=== PATIENT | male | born 1950 | race African-American/Black ===

== ENCOUNTER → 2017-04-05 | Outpatient (CLI) | payer MEDICARE, MEDICAID ==
[2017-04-05 08:03] LABS: ASPARTATE AMINO TRANSFERASE 20 U/L (15-37); BLOOD UREA NITROGEN 39 mg/dL (7-18)
== END | disposition home or self-care (01) ==
LOC: LAB 07:34
PROVIDERS: ATTEND Family Medicine
DX: I12.9 Hypertensive chronic kidney disease with stage 1 through stage 4 chronic kidney disease, or unspecified chronic kidney disease (principal); E11.22 Type 2 diabetes mellitus with diabetic chronic kidney disease; E11.319 Type 2 diabetes mellitus with unspecified diabetic retinopathy without macular edema; N18.2 Chronic kidney disease, stage 2 (mild); E78.70 Disorder of bile acid and cholesterol metabolism, unspecified
CPT/HCPCS: 36415; 80053; 83036

== ENCOUNTER → 2017-07-31 | Outpatient (CLI) | payer MEDICARE, MEDICAID ==
[2017-07-31 07:38] LABS: BLOOD UREA NITROGEN 47 mg/dL (7-18)
== END | disposition home or self-care (01) ==
LOC: LAB 07:14
PROVIDERS: ATTEND Family Medicine
DX: E11.9 Type 2 diabetes mellitus without complications (principal)
CPT/HCPCS: 36415; 80048

== ENCOUNTER → 2018-08-16 | Outpatient (CLI) | payer MEDICAID, MEDICARE ==
[2018-08-16 08:29] LABS: ANION GAP 6 mmol/L (5-15); CALCIUM 8.7 mg/dL (8.5-10.1); CHLORIDE 108 mmol/L (98-107)
[2018-08-16 08:32] LABS: ALANINE AMINOTRANSFERASE 25 U/L (12-78); ALKALINE PHOSPHATASE 59 U/L (45-117); BILIRUBIN,TOTAL 0.2 mg/dL (0.2-1.0); CHOL/HDL RATIO 3.1; CHOLESTEROL, TOTAL 144 mg/dL (140-239); CREATININE 1.51 mg/dL (0.7-1.3); HDL CHOL % 33 % (26-37); HDL CHOLESTEROL (DIRECT) 47 mg/dL (40-60); LDL CHOLESTEROL,CALCULATED 79 mg/dL (54-169); LDL/HDL RATIO 1.7 (0.5-3.0); TOTAL PROTEIN 7.9 g/dL (6.4-8.2); TRIGLYCERIDES 89 mg/dL (50-200); VLDL CHOLESTEROL 18 mg/dL (0-25)
[2018-08-16 08:57] LABS: HEMOGLOBIN A1C 7.3 % (4.2-6.3)
[2018-08-16 09:06] LABS: MICROSCOPIC NOT IND
[2018-08-16 09:15] LABS: CULTURE INDICATED? NO
== END | disposition home or self-care (01) ==
LOC: LAB 07:59
PROVIDERS: ATTEND Family Medicine
DX: E11.9 Type 2 diabetes mellitus without complications (principal)
CPT/HCPCS: 36415; 80053; 80061; 81003; 82043; 83036

== ENCOUNTER → 2019-03-17 | Outpatient (CLI) | payer MEDICARE, MEDICAID ==
[2019-03-17 07:30] LABS: ALANINE AMINOTRANSFERASE 27 U/L (12-78); ALBUMIN 4.3 g/dL (3.4-5.0); ANION GAP 5 mmol/L (5-15); CALCIUM 9.5 mg/dL (8.5-10.1); CHLORIDE 106 mmol/L (98-107); CREATININE 1.78 mg/dL (0.7-1.3)
[2019-03-17 07:32] LABS: ALKALINE PHOSPHATASE 56 U/L (45-117); BILIRUBIN,TOTAL 0.2 mg/dL (0.2-1.0)
== END | disposition home or self-care (01) ==
LOC: LAB 07:03
PROVIDERS: ATTEND Family Medicine
DX: E11.21 Type 2 diabetes mellitus with diabetic nephropathy (principal)
CPT/HCPCS: 36415; 80053; 83036

== ENCOUNTER 2019-07-24 19:00 | Emergency (ER) | payer MEDICARE, MEDICAID ==
[~2019-07-24] VITALS: Ht 172.7 cm; Wt 69.2 kg
--- NOTE | 2019-07-24 20:47 | NUR ---
PT UPDATED ON POC. ATTEMPT TO COLLECT URINE, PT ATTEMPTS BUT UNABLE TO GO STATING HE HAS URINATED FOUR TIMES SINCE ARRIVAL TO ER. CALL LIGHT WITHIN REACH. AWAITING XR READ.
--- NOTE | 2019-07-24 20:53 | NUR ---
URINE COLLECTED/SENT TO LAB.
[2019-07-24 20:54] LABS: ALBUMIN 4.1 g/dL (3.4-5.0); ANION GAP 10 mmol/L (5-15); CALCIUM 9.3 mg/dL (8.5-10.1); CHLORIDE 106 mmol/L (98-107); CREATININE 1.43 mg/dL (0.7-1.3)
[2019-07-24 20:59] LABS: BASOPHILS # (AUTO) 0.03 x10^3/uL (0-0.1); BASOPHILS % (AUTO) 1 % (0-1); EOSINOPHILS # (AUTO) 0.02 x10^3/uL (0-0.4); EOSINOPHILS % (AUTO) 0 % (1-7); LYMPHOCYTES # (AUTO) 1.91 x10^3/uL (1-3.4); LYMPHOCYTES % (AUTO) 32 % (22-44); MD NO; MEAN CORPUSCULAR HEMOGLOBIN 28.3 pg (27.5-34.5); MEAN CORPUSCULAR HGB CONC 32.4 g/dL (33.2-36.2); MEAN CORPUSCULAR VOLUME 87.4 fL (81-97); MEAN PLATELET VOLUME 8.5 fL (7.4-10.4); MONOCYTES # (AUTO) 0.41 x10^3/uL (0.2-0.8); MONOCYTES % (AUTO) 7 % (2-9); NEUTROPHILS # (AUTO) 3.66 x10^3/uL (1.8-6.8); NEUTROPHILS % (AUTO) 61 % (42-75); PLATELET COUNT 206 x10^3/uL (130-400); RED BLOOD COUNT 5.11 x10^6/uL (4.38-5.82); RED CELL DISTRIBUTION WIDTH 15.2 % (9.4-14.8)
[2019-07-24 21:12] LABS: MICROSCOPIC AUTO
--- NOTE | 2019-07-24 21:22 | NUR ---
EMILIA ENEMA INSTRUCTIONS PROVIDED TO PT. RN ASSIST WITH PT TO SELF ADMINISTER ENEMA. ENEMA TOLERATED WELL, PT LYING ON LEFT SIDE, CALL LIGHT WITHIN REACH.
[2019-07-24 21:24] LABS: CULTURE INDICATED? NO
--- NOTE | 2019-07-24 21:49 | NUR ---
PT WITH SMALL AMOUNT OF STOOL IN TOILET. PT STATES HE CAN STILL FEEL A LOT OF PRESSURE IN RECTUM. 2ND FLEETS ATTEMPTED, PT INSTRUCTED TO HOLD IN FLUID LONG POSSIBLE. CALL LIGHT WITHIN REACH.
[2019-07-24 21:50] VITALS: BP 136/78
--- NOTE | 2019-07-24 22:07 | NUR ---
REPORT TO TONY PERALTA, TRANSFER OF CARE AT THIS TIME.
--- NOTE | 2019-07-24 22:24 | NUR ---
REPORT RECIEVED FROM KATHRYN MONET
== END 2019-07-24 23:00 | disposition home or self-care (01) ==
LOC: ED 22:49
DX: K59.00 Constipation, unspecified (principal); E11.22 Type 2 diabetes mellitus with diabetic chronic kidney disease; N18.9 Chronic kidney disease, unspecified
CPT/HCPCS: 36415; 74021; 80048; 81001; 82040; 85025; 99284

== ENCOUNTER 2020-06-30 08:25 | Emergency (ER) | payer MEDICARE, MEDICAID ==
[~2020-06-30] VITALS: Ht 172.7 cm; Wt 65.9 kg
[~2020-06-30 08:25] MED LIST: ASPI81TA45 PO; CLOP75TA PO; FURO-93 PO; INSU100I13 SQ; LISI5TAB7 PO; METF500T17 PO; METO25TA35 PO/NG; POTA10TA5 PO; SIMV40TA20 PO
[2020-06-30 08:27] VITALS: BP 159/87
--- NOTE | 2020-06-30 08:45 | NUR ---
MANAGER COSTING: PT TO ROOM FROM [facility]
--- NOTE | 2020-06-30 08:57 | NUR ---
PT WITH CABG 3 WKS AGO, HAS STAPLE FOR R HARVEST SITE LE. PT STATES HE HAS FOLLOWED UP WITH CARDIOLOGY BUT THEY DIDNT TELL HIM WHEN TO HAVE IDANIA REMOVED.
== END 2020-06-30 09:47 | disposition home or self-care (01) ==
LOC: ED 09:28
DX: S81.811D Laceration without foreign body, right lower leg, subsequent encounter (principal); X58.XXXD Exposure to other specified factors, subsequent encounter
CPT/HCPCS: 99281

== ENCOUNTER 2020-07-26 19:00 | Emergency (ER) | payer MEDICARE, MEDICAID ==
[~2020-07-26] VITALS: Ht 172.7 cm; Wt 68.3 kg
[2020-07-26 19:14] VITALS: BP 182/74
--- NOTE | 2020-07-26 19:43 | NUR ---
PT SITTING IN CHAIR, CONVERSING WITH THIS RN, NO SIGNS OF DISTRESS. 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
[2020-07-26 20:12] LABS: BASOPHILS # (AUTO) 0.06 x10^3/uL (0-0.1); BASOPHILS % (AUTO) 1 % (0-1); EOSINOPHILS % (AUTO) 2 % (1-7); LYMPHOCYTES % (AUTO) 32 % (22-44); MD NO; MEAN CORPUSCULAR HEMOGLOBIN 28.2 pg (27.5-34.5); MEAN CORPUSCULAR HGB CONC 32.2 g/dL (33.2-36.2); MEAN CORPUSCULAR VOLUME 87.6 fL (81-97); MEAN PLATELET VOLUME 8.8 fL (7.4-10.4); MONOCYTES # (AUTO) 0.43 x10^3/uL (0.2-0.8); MONOCYTES % (AUTO) 7 % (2-9); NEUTROPHILS # (AUTO) 3.69 x10^3/uL (1.8-6.8); NEUTROPHILS % (AUTO) 59 % (42-75); PLATELET COUNT 213 x10^3/uL (130-400); RED BLOOD COUNT 4.63 x10^6/uL (4.38-5.82); RED CELL DISTRIBUTION WIDTH 16.6 % (9.4-14.8)
[2020-07-26 20:23] LABS: ALANINE AMINOTRANSFERASE 20 U/L (12-78); ANION GAP 7 mmol/L (5-15); CALCIUM 9.4 mg/dL (8.5-10.1); CHLORIDE 109 mmol/L (98-107); CREATININE 1.64 mg/dL (0.7-1.3)
[2020-07-26 20:26] LABS: ALBUMIN 3.7 g/dL (3.4-5.0); ALKALINE PHOSPHATASE 78 U/L (45-117); BILIRUBIN,TOTAL 0.2 mg/dL (0.2-1.0); TOTAL PROTEIN 7.9 g/dL (6.4-8.2)
== END 2020-07-26 21:32 | disposition home or self-care (01) ==
LOC: ED 21:31
DX: L03.031 Cellulitis of right toe (principal); E11.9 Type 2 diabetes mellitus without complications; I10 Essential (primary) hypertension; Z95.1 Presence of aortocoronary bypass graft
CPT/HCPCS: 36415; 80053; 85025; 99284

== ENCOUNTER 2020-08-04 15:23 | Emergency (ER) | payer MEDICAID, MEDICARE ==
[~2020-08-04] VITALS: Ht 175.3 cm; Wt 67.1 kg
[2020-08-04 15:32] VITALS: BP 108/52
[2020-08-04] MEDS ORDERED: LIDOCAINE 1%, 10ML INFIL ONE (16:00)
[2020-08-04] MEDS ORDERED: LIDOCAINE-MPF 1%, 5ML ONE (16:05)
== END 2020-08-04 17:31 | disposition home or self-care (01) ==
LOC: ED 17:25
DX: L02.611 Cutaneous abscess of right foot (principal); E11.9 Type 2 diabetes mellitus without complications; Z87.891 Personal history of nicotine dependence
CPT/HCPCS: 10060; 99282

== ENCOUNTER 2020-08-10 12:21 | Emergency (ER) | payer MEDICARE ==
[~2020-08-10] VITALS: Ht 172.7 cm; Wt 67.2 kg
--- NOTE | 2020-08-10 13:05 | NUR ---
FIRST CONTACT WITH PT. PT STATED"ITCHING ALL OVER THE BODY AND I CAN'T SLEEP FOR A FEW DAYS' PT DENIES ANY RASH/REDNESS/SWELLING ON THE BODY. BP/SPO2 MONITORS IN PLACE. CALL LIGHT WITHIN REACH. PA AT BEDSIDE EVALUATING AT THIS TIME.
--- NOTE | 2020-08-10 13:16 | NUR ---
PT MEDICATED PER EMAR. PT TOLERATED WELL.
[2020-08-10 13:28] LABS: BASOPHILS # (AUTO) 0.05 x10^3/uL (0-0.1); BASOPHILS % (AUTO) 1 % (0-1); EOSINOPHILS # (AUTO) 0.16 x10^3/uL (0-0.4); EOSINOPHILS % (AUTO) 3 % (1-7); LYMPHOCYTES # (AUTO) 1.87 x10^3/uL (1-3.4); LYMPHOCYTES % (AUTO) 35 % (22-44); MD NO; MEAN CORPUSCULAR HEMOGLOBIN 27.7 pg (27.5-34.5); MEAN CORPUSCULAR HGB CONC 31.7 g/dL (33.2-36.2); MEAN CORPUSCULAR VOLUME 87.3 fL (81-97); MEAN PLATELET VOLUME 7.4 fL (7.4-10.4); MONOCYTES # (AUTO) 0.31 x10^3/uL (0.2-0.8); MONOCYTES % (AUTO) 6 % (2-9); NEUTROPHILS # (AUTO) 3.02 x10^3/uL (1.8-6.8); NEUTROPHILS % (AUTO) 56 % (42-75); PLATELET COUNT 423 x10^3/uL (130-400); RED CELL DISTRIBUTION WIDTH 16.2 % (9.4-14.8)
[2020-08-10 13:39] LABS: ALBUMIN 3.6 g/dL (3.4-5.0); ANION GAP 3 mmol/L (5-15); CALCIUM 9.6 mg/dL (8.5-10.1); CHLORIDE 108 mmol/L (98-107)
[2020-08-10 13:43] LABS: ALANINE AMINOTRANSFERASE 25 U/L (12-78); ALKALINE PHOSPHATASE 69 U/L (45-117); BILIRUBIN,TOTAL 0.2 mg/dL (0.2-1.0); CREATININE 1.15 mg/dL (0.7-1.3); TOTAL PROTEIN 8.3 g/dL (6.4-8.2)
[2020-08-10 14:07] VITALS: BP 107/83
--- NOTE | 2020-08-10 14:08 | NUR ---
EKG DONE AT BEDSIDE.
== END 2020-08-10 15:15 | disposition home or self-care (01) ==
LOC: ED 14:02
DX: L29.9 Pruritus, unspecified (principal); R94.31 Abnormal electrocardiogram [ECG] [EKG]; I25.10 Atherosclerotic heart disease of native coronary artery without angina pectoris; I25.2 Old myocardial infarction; E11.9 Type 2 diabetes mellitus without complications; E78.00 Pure hypercholesterolemia, unspecified; Z95.1 Presence of aortocoronary bypass graft; Z87.891 Personal history of nicotine dependence
CPT/HCPCS: 36415; 80053; 84132; 85025; 93005; 99284; Q0177

== ENCOUNTER 2020-12-27 14:11 | Emergency (ER) | payer MEDICARE, MEDICAID ==
[~2020-12-27] VITALS: Ht 172.7 cm; Wt 70.5 kg
[~2020-12-27 14:11] MED LIST changes: +CEPH750C9 PO; +METO50TA82 PO; +SIMV20TA19 PO; +ZOLP5TAB6 PO
[2020-12-27 14:14] VITALS: BP 153/94
--- NOTE | 2020-12-27 14:45 | NUR ---
Pt to room from lobby.
== END 2020-12-27 16:41 | disposition home or self-care (01) ==
LOC: ED 16:20
DX: Z48.01 Encounter for change or removal of surgical wound dressing (principal); Z76.0 Encounter for issue of repeat prescription; I10 Essential (primary) hypertension; E11.9 Type 2 diabetes mellitus without complications; E78.00 Pure hypercholesterolemia, unspecified; I25.10 Atherosclerotic heart disease of native coronary artery without angina pectoris; I25.2 Old myocardial infarction
CPT/HCPCS: 99281

== ENCOUNTER → 2021-06-22 | Outpatient (CLI) | payer MEDICARE, MEDICAID | END | disposition home or self-care (01) | LOC: CFH 09:48 | PROVIDERS: ATTEND Internal Medicine Cardiovascular Disease | DX: I08.8 Other rheumatic multiple valve diseases (principal); I10 Essential (primary) hypertension; E11.9 Type 2 diabetes mellitus without complications; Z87.891 Personal history of nicotine dependence; Z95.1 Presence of aortocoronary bypass graft | CPT/HCPCS: 93306; 93356 ==